=== PATIENT | male | born 1985 | race Caucasian/White ===

== ENCOUNTER 2019-11-11 04:06 | Inpatient (IN) | payer SELFPAY ==
[~2019-11-11] VITALS: Ht 175.3 cm; Wt 95.3 kg
[~2019-11-11 04:06] MED LIST: ALBUTEROL; KLOR-CON20 MEQ PO; VITAMIN D NATU400 IU PO
[2019-11-11 04:09] VITALS: Ht 175.3 cm; Wt 95.3 kg
[2019-11-11 05:37] LABS: BASOPHIL % 0.7 % (0-2); PLATELET COUNT 218 x10^3mcL (130-400); RED CELL DISTRIBUTION WIDTH 12.6 % (11.5-14.5)
[2019-11-11 05:43] LABS: ALBUMIN 3.7 g/dL (3.4-5.0); ALKALINE PHOSPHATASE 43 U/L (46-116); ALT/SGPT 35 U/L (16-63); AST/SGOT 24 U/L (15-37); BILIRUBIN TOTAL 0.3 mg/dL (0.20-1.00); CALCIUM 9.2 mg/dL (8.5-10.1); CHLORIDE SERUM 107 mmol/L (98-107); CREATININE SERUM 1.1 mg/dL (0.7-1.3); GFR1 > 60 mL/min; GLUCOSE SERUM 126 mg/dL (74-106); SODIUM SERUM 144 mmol/L (136-145); TOTAL PROTEIN, SERUM 7.1 g/dL (6.4-8.2)
[2019-11-11 05:50] LABS: POTASSIUM SERUM 1.4 mmol/L (3.5-5.1)
[2019-11-11 08:05] LABS: CALCIUM 8.5 mg/dL (8.5-10.1); CARBON DIOXIDE 23.9 mmol/L (21-32); CHLORIDE SERUM 110 mmol/L (98-107); GFR1 > 60 mL/min; GLUCOSE SERUM 115 mg/dL (74-106); POTASSIUM SERUM 3.7 mmol/L (3.5-5.1); SODIUM SERUM 143 mmol/L (136-145)
[2019-11-11 08:20] LABS: T3 TOTAL 1.41 ng/mL
[2019-11-11 08:44] LABS: FREE T4 1.03 ng/dL (0.76-1.46); FREE THYROXINE INDEX 2.5 ug/dL (1.4-4.5); T4(THYROXINE) 7.1 ug/dL (4.7-13.3)
[2019-11-11 08:49] LABS: CHOLESTEROL/HDL RATIO 5.7
[2019-11-11 09:31] LABS: microscopic required? NO
[2019-11-11] MEDS ORDERED: KLOR-CON20 MEQ PO (09:38)
[2019-11-11 09:47] VITALS: BP 126/79
[2019-11-11 09:56] LABS: UA SPECIFIC GRAVITY 1.025 (1.005-1.035); urine erythrocyte NEGATIVE (NEGATIVE)
[2019-11-11 10:13] LABS: AMPHETAMINE QUAL UR NONE DETECTED (See below)
== END 2019-11-11 09:17 | disposition home or self-care (01) | DRG 93 ==
LOC: ED 04:06 → DU 06:10
PROVIDERS: Student in an Organized Health Care Education/Training Program; ADMIT Internal Medicine; ATTEND Internal Medicine
DX: G72.3 Periodic paralysis (principal); J45.909 Unspecified asthma, uncomplicated
CPT/HCPCS: 83880; 84439; G0378; J3480; Q0092